=== PATIENT | female | born 1985 | race Caucasian/White ===

== ENCOUNTER 2018-11-16 18:41 | Emergency (ER) | payer MEDICAID ==
[2018-11-16] MEDS ORDERED: Sodium Chloride 0.9% 1,000 ML IV STA (18:55)
[2018-11-16 19:00] VITALS: BMI 34.7
[2018-11-16 19:06] VITALS: RESP 18; TEMP 98.3; O2SAT 100
[2018-11-16 19:50] LABS: BASO # 0.03 K/mm3 (0.0-2.0); BASO % 0.2 % (0.0-3.0); EOS # 0.1 (0.0-0.7); EOS % 0.8 % (1.5-5.0); HEMOGLOBIN 13.9 g/dL (12.0-16.0); LYMPH # 2.7 (1.2-3.4); LYMPH % 20.8 % (22.0-35.0); MEAN CELL VOLUME 83.6 fl (80.0-105.0); MEAN CORPUSCULAR HEMOGLOBIN 28.5 pg (25.0-35.0); MEAN CORPUSCULAR HGB CONC 34.1 g/dl (31.0-37.0); MEAN PLATELET VOLUME 9.8 fl (7.0-11.0); MONO # 0.7 (0.1-0.6); MONO % 5.1 % (1.0-6.0); RBC 4.88 10^6/uL (3.5-6.1); RED CELL DISTRIBUTION WIDTH 13.3 % (11.5-14.5); WHITE BLOOD COUNT 13.1 10^3/uL (4.5-11.0)
--- NOTE | 2018-11-16 19:54 | ED PDOC ---
Arrival/HPI - General Chief Complaint: GI Problem Time Seen by Provider: 11/16/18 18:52 Historian: Patient - History of Present Illness Narrative History of Present Illness (Text): 11/17/18 [age] y/o female presents to the ED c/o nausea and vomiting x 3 days. Vomiting is nonbloody, nonbilious, approximately 5 times daily. Associated intermittent lower abdominal pain and epigastric pain. Has not taken any medication for pain. Admits to irregular menstuation. LMP 09/27/18. Denies fever, chills, diarrhea, cough, congestion, chest pain, back pain, urinary symptoms, vaginal bleeding or discharge, SOB, or any other associated symptoms. Past Medical History - Provider Review Nursing Documentation Reviewed: Yes - Infectious Disease Hx of Infectious Diseases: None - Neurological HX Cerebrovascular Accident: Yes Hx Paralysis: Yes (right side) - Gastrointestinal Other/Comment: umbilical hernia - Psychiatric Hx Substance Use: No - Surgical History Hx Section: Yes (x1) - Anesthesia Hx Anesthesia: Yes Hx Anesthesia Reactions: No Hx Malignant Hyperthermia: No Family/Social History - Physician Review Nursing Documentation Reviewed: Yes Family/Social History: No Known Family HX Smoking Status: Never Smoked Hx Alcohol Use: No Hx Substance Use: No Allergies/Home Meds Allergies/Adverse Reactions: Allergies No Known Allergies Allergy (Verified 11/16/18 18:50) Review of Systems - Review of Systems ENT: Normal. absent: Sore Throat, Sinus Congestion Respiratory: Normal. absent: SOB, Cough Cardiovascular: Normal. absent: Chest Pain, Palpitations, Syncope Gastrointestinal: Abdominal Pain, Nausea, Vomiting. absent: Stool Changes, Appetite Changes Genitourinary Female: Normal. absent: Dysuria, Frequency, Urine Output Changes, Vaginal Bleeding, Vaginal Discharge Musculoskeletal: Normal. absent: Arthralgias, Back Pain, Neck Pain Skin: Normal. absent: Rash Neurological: Normal. absent: Headache, Dizziness Physical Exam Vital Signs Reviewed: Yes Vital Signs Temp Pulse Resp BP Pulse Ox 11/16/18 19:02 98.3 F 95 H 18 119/70 100 Temperature: Afebrile Blood Pressure: Normal Pulse: Regular Respiratory Rate: Normal Appearance: Positive for: Well-Appearing, Non-Toxic, Comfortable Pain Distress: None Mental Status: Positive for: Alert and Oriented X 3 - Systems Exam Head: Present: Atraumatic, Normocephalic Pupils: Present: PERRL Extroacular Muscles: Present: EOMI Conjunctiva: Present: Normal Mouth: Present: Moist Mucous Membranes Neck: Present: Normal Range of Motion Respiratory/Chest: Present: Clear to Auscultation, Good Air Exchange. No: Respiratory Distress, Accessory Muscle Use Cardiovascular: Present: Regular Rate and Rhythm, Normal S1, S2. No: Murmurs Abdomen: Present: Tenderness (mild epigastric), Normal Bowel Sounds. No: Distention, Peritoneal Signs, Rebound, Guarding Back: Present: Normal Inspection. No: CVA Tenderness, Midline Tenderness, Paraspinal Tenderness Upper Extremity: Present: Normal Inspection, Normal ROM, NORMAL PULSES, Neurovascularly Intact, Capillary Refill < 2s. No: Cyanosis, Edema, Temperature Abnormalties Lower Extremity: Present: Normal ROM Neurological: Present: GCS=15, CN II-XII Intact, Speech Normal, Motor Func Grossly Intact, Normal Sensory Function, Gait Normal Skin: Present: Warm, Dry, Normal Color. No: Rashes Psychiatric: Present: Alert, Oriented x 3, Normal Insight, Normal Concentration, Normal Affect, Normal Mood Medical Decision Making ED Course and Treatment: 11/16/18 19:52 Initial Plan: * CBC, CMP * Coags * Lipase * UA * POC preg * IVF POC preg positive. Will add beta hcg quant and transvaginal ultrasound Bloodwork significant for leukocytosis at 13, otherwise unremarkable. Pt is afebrile with otherwise stabl vitals. UA shows findings suspicious for UTI, will treat with keflex Abdominal ultrasound unremarkable Transvaginal ultrasound shows live IUP at 7 weeks gestation. Pt provided with copy of report. Advised OBGYN and PMD followup. Prescription for keflex and vitamins provided. No vaginal bleeding or trauma, no indication for type and screen. Patient reports improvement in symptoms with fluids. No vomiting in ED. Diagnostic testing results and plan of care discussed with patient. Strict instructions given regarding prescription use, importance of followup, and signs/symptoms to return to ER including worsening abdominal pain, fever, chills, or any other new/worsening symptoms. Pt verbalized understanding of discussion. Patient is A&Ox3, ambulating with steady gait, with vital signs stable for discharge. - Lab Interpretations Lab Results: 11/16/18 19:46 11/16/18 19:46 Lab Results 11/16/18 20:54: PT 11.4, INR 1.03, APTT 31.4 11/16/18 20:05: Urine Color yellow, Urine Appearance Slight-cloudy, Urine pH 8.0 , Ur Specific [place] 1.015, Urine Protein Trace H, Urine Glucose (UA) Negative, Urine Ketones Negative, Urine Blood Negative, Urine Nitrate Negative, Urine Bilirubin Negative, Urine Urobilinogen 1.0 H, Ur Leukocyte Esterase Large H, Urine RBC TEST NOT PERFORMED, Urine WBC 20 - 25 H, Ur Epithelial Cells Many H 11/16/18 19:46: Beta HCG, Quant [id number] H 11/16/18 19:46: Sodium 138, Potassium 3.9, Chloride 108 H, Carbon Dioxide 18 L, Anion Gap 16, BUN 13, Creatinine 0.9, Est GFR ( Amer) > 60, Est GFR (Non- Af Amer) > 60, Random Glucose 101, Calcium 9.9, Magnesium 2.1, Total Bilirubin 0.3, AST 22, ALT 17, Alkaline Phosphatase 60, Total Protein 7.5, Albumin 4.3, Globulin 3.2, Albumin/Globulin Ratio 1.3, Lipase 162 11/16/18 19:46: WBC 13.1 H, RBC 4.88, Hgb 13.9, Hct 40.8, MCV 83.6, MCH 28.5, MCHC 34.1, RDW 13.3, Plt Count 308, MPV 9.8, Neut % (Auto) 73.1 H, Lymph % (Auto) 20.8 L, [place] % (Auto) 5.1, Eos % (Auto) 0.8 L, Baso % (Auto) 0.2, Lymph # (Auto) 2.7, [place] # (Auto) 0.7 H, Eos # (Auto) 0.1, Baso # (Auto) 0.03, Absolute Neuts (auto) 9.59 H I have reviewed the lab results: Yes - RAD Interpretation Narrative RAD Interpretations (Text): 11/16/18 22:38 Transvaginal US: FINDINGS: GESTATION: Single living IUP estimated to be 7 weeks and 2 days in age, +/- 4 days. cardiac rate documented at 160 BPM. UTERUS: Unremarkable. No myometrial mass. CERVIX: Closed. Unremarkable. OVARIES: A 2.1 x 1.8 x 1.7 cm corpus luteum cyst noted in the right ovary. A 1.3 x 0.7 x 1.4 cm cyst noted in the left ovary. No suspicious mass. FREE FLUID: No free fluid. IMPRESSION: Single living intrauterine . Electronically signed on Nov 16, 2018 9:38:19 PM EDT by: Gregg Lemus M.D., ELDER Certified By [facility] [facility] Fellowship Trained MRI and CT Specialist Abdominal US: FINDINGS: LIVER: Normal in size. Increased echogenicity noted suggestive of hepatic steatosis. GALLBLADDER: The gallbladder is partially contracted. No gallstone. No gallbladder wall thickening. No pericholecystic fluid. COMMON BILE DUCT: No dilation. PANCREAS: Unremarkable where visualized. The distal pancreas is obscured by overlying bowel gas. KIDNEYS: Unremarkable. Normal renal contours. No renal mass or calculus. No hydronephrosis. SPLEEN: Unremarkable. AORTA: No aneurysm. IVC: Unremarkable as visualized. MISCELLANEOUS: No other significant findings identified. IMPRESSION: 1. Increased echogenicity of the liver compatible with hepatic steatosis. 2. Partial contraction of the gallbladder. 3. Otherwise, unremarkable complete abdominal ultrasound. Electronically signed on Nov 16, 2018 9:38:32 PM EDT by: Gregg Lemus M.D., ELDER Certified By [facility]BR [employer] [facility] Fellowship Trained MRI and CT Specialist Radiology Orders: 11/16/18 19:11 OB TRANSVAGINAL [US] Stat Utility Mechanic Supervisor: Radiologist - Medication Orders Current Medication Orders: Sodium Chloride (Sodium Chloride 0.9%) 1,000 mls @ 1,000 mls/hr IV .Q1H STA Stop: 11/16/18 19:54 Disposition/Present on Arrival - Present on Arrival Any Indicators Present on Arrival: No History of DVT/PE: No History of Uncontrolled Diabetes: No Urinary Catheter: No History of Decub. Ulcer: No History Surgical Site Infection Following: None - Disposition Have Diagnosis and Disposition been Completed?: Yes Diagnosis: , UTI (urinary tract infection), Nausea & vomiting Disposition: HOME/ ROUTINE Disposition Time: 22:15 Patient Plan: Discharge Condition: IMPROVED Discharge Instructions (ExitCare): Urinary Tract Infection, Adult (DC), Acute Abdomen (Belly Pain), Nausea and Vomiting of (DC), - The Second Month Print Language: [place] Additional Instructions: Keflex cada 12 horas hunter 7 vivar Vitaminas prenatales diarias Aumentar los fluidos [place], no actividad vigorosa. Seguimiento con gineclogo dentro de 2 vivar Seguimiento con mdico primario en 2 vivar. Prescriptions: Cephalexin [cephalexin] 500 mg PO Q12H #14 cap Multivit/Folic Acid/I [ Plus] 1 tab PO DAILY #30 tab Referrals: Shweta Shukla MD [Primary Care Provider] - Follow up with primary Leonie Kapadia MD [Staff Provider] - [facility]] - Follow up with primary Forms: [facility] (Sinhala), WORK NOTE
[2018-11-16 20:02] LABS: ALB/GLOB RATIO 1.3 (1.1-1.8); ALBUMIN 4.3 g/dL (3.0-4.8); ALT/SGPT 17 U/L (7-56); AST/SGOT 22 U/L (14-36); BLOOD UREA NITROGEN 13 mg/dL (7-21); CALCIUM 9.9 mg/dL (8.4-10.5); GFR NON-AFRICAN AMERICAN > 60; LIPASE 162 U/L (23-300)
[2018-11-16 20:22] LABS: URINE BILIRUBIN NEGATIVE (NEGATIVE); URINE BLOOD NEGATIVE (NEGATIVE); URINE GLUCOSE (UA) NEGATIVE (NEGATIVE); URINE LEUKOCYTE ESTERASE LARGE Leu/uL (NEGATIVE); URINE PROTEIN TRACE mg/dL (<30 mg/dL)
[2018-11-16 20:31] LABS: URINE APPEARANCE SLIGHT-CLOUDY (CLEAR)
[2018-11-16 20:50] LABS: URINE EPITHELIAL CELLS MANY /hpf (0-5); URINE WBC 20 - 25 /hpf (0-6)
[2018-11-16 21:22] LABS: INR 1.03; PARTIAL THROMBOPLASTIN TIME 31.4 Seconds (26.9-38.3); PROTHROMBIN TIME 11.4 SECONDS (9.4-12.5)
[2018-11-16 21:35] VITALS: BP 99/67; PULSE 97
--- NOTE | 2018-11-17 10:06 | US ---
HISTORY: RUQ focus, epigastric/RUQ pain COMPARISON: Gallbladder ultrasound performed 02/17/16 TECHNIQUE: Sonographic evaluation of the abdomen. FINDINGS: LIVER: Measures 14.7 cm in sagittal dimension. Echogenic liver may be seen in setting of hepatic parenchymal disease or fatty infiltration. No focal hepatic mass identified. The main portal vein appears patent with normal directional flow. No intrahepatic bile duct dilatation. GALLBLADDER: Contracted state limits evaluation. No gallstones. No gallbladder wall thickening. Negative sonographic Oropeza's sign as assessed by the supervisor grower. COMMON BILE DUCT: Measures 3 mm. PANCREAS: Not well visualized. RIGHT KIDNEY: Measures 10.9 x 3.7 x 5.6 cm. No obstructing calculus or hydronephrosis identified. LEFT KIDNEY: Measures 11.5 x 4.5 x 5.5 cm. No obstructing calculus or hydronephrosis identified. SPLEEN: Measures approximately 9.8 cm. AORTA: Limited views appear unremarkable. IVC: Limited views appear unremarkable. OTHER FINDINGS: None. IMPRESSION: Echogenic liver may be seen in setting of hepatic parenchymal disease or fatty infiltration. Preliminary impression was provided by [employer].
--- NOTE | 2018-11-17 12:29 | US ---
Date of service: 11/16/2018 Indication: OB, abd pain, LMP 09/27 Comparison: Ob transvaginal ultrasound performed 02/17/16 Technique: Transvaginal pelvic ultrasound Findings: The uterus measures approximately 8.3 x 6.6 x 6.6 cm. Cervix length measures approximately 3.1 cm. There is a single intrauterine fetus present. 5 mm yolk sac. The gestational sac measures 2.5 cm and is compatible with a gestational age of 7 weeks 1 day. The crown-rump length measures 1.2 cm and is compatible with a gestational age of 7 weeks 3 days. Small probable subchorionic hemorrhage. There is heart motion which measured 157.2 BPM. The right ovary measures 2.7 x 2.2 x 2.1 cm and contains evidence of 2.1 cm corpus luteal cyst. The left ovary measures 2.7 x 1.7 x 2.1 cm. Flow was demonstrated to both ovaries. Impression: Live single intrauterine with estimated gestational age 7 weeks 3 days by crown-rump length calculation. heart rate 157.2 bpm. Suspected small subchorionic hemorrhage. Advise an anomaly screen at 16-18 weeks gestational age. Preliminary impression was provided by [employer]. Study marked for PA review.
== END 2018-11-16 22:46 | disposition home or self-care (01) ==
LOC: ED 18:41
DX: O23.41 Unspecified infection of urinary tract in pregnancy, first trimester (principal); O21.9 Vomiting of pregnancy, unspecified; Z3A.01 Less than 8 weeks gestation of pregnancy
CPT/HCPCS: 76700; 76817; 80053; 81001; 81025; 83690; 83735; 84702; 85025; 85610; 85730; 87086; 96360; 99284; J7030